=== PATIENT | female | born 1950 | race Caucasian/White ===

== ENCOUNTER 2019-02-14 09:48 | Inpatient (IN) ==
[2019-02-14] MEDS ORDERED: ONDANSETRON 4 MG/2 ML VIAL IV STA (10:11)
[2019-02-14 10:48] LABS: Basophils % 0.5 % (0.0-0.8); Eosinophils % 0.3 % (0.00-10.9); Hematocrit 46.3 VOL% (35.7-47.0); Hemoglobin 14.8 GM/DL (12.0-16.0); Immature Granulocytes % 0.5 %; Immature Granulocytes Absolute 0.04 #; Lymphocytes # 1.1 10*3/uL (1.4-4.0); Lymphocytes % 14.5 % (21.3-54.2); Mean Corpuscular Hemoglobin 31 PG (27-34); Mean Corpuscular Volume 95.5 FL (87-102); Mean Platelet Volume 8.7 FL (9.6-12.0); Monocytes # 0.4 10*3/uL (0.11-0.8); Monocytes % 5.4 % (1.7-12.7); Neutrophils # 6.2 10*3/uL (1.4-7.4); Neutrophils % 78.8 % (38.7-73.9); Platelet Count 294 T/CUMM (130-400); Red Blood Count 4.85 MC/CUMM (3.8-5.5); Red Cell Distribution Width 13.1 % (9.3-17.3); White Blood Count 7.8 T/CUMM (4-12)
[2019-02-14 10:55] LABS: Amorphous Crystals,Urine Occasional /HPF (Few); Apearance,Urine Slightly Hazy (Clear); Bacteria,Urine Occasional /HPF (Few); Bilirubin,Urine Negative (Negative); Blood, Urine Small mg/dL (Negative); Glucose,Urine (UA) 50 mg/dL (Negative); Hyaline Casts,Urine 45 /LPF (0-3); Ketones,Urine 5 mg/dL (Negative); Mucus,Urine Many /LPF (Occasional); Nitrite,Urine Negative (Negative); Protein,Urine 30 MG/DL; RBC,Urine 1 /HPF (0-4); Squamous Epithelial Cell,Urine Occasional /HPF (0-10); Urine Color Amber (Yellow); WBC,Urine 14 /HPF (0-6)
[2019-02-14 11:09] LABS: Alanine Aminotransferase 14 U/L (13-56); Alkaline Phosphatase 85 U/L (45-117); Aspartate Amino Transferase 12 U/L (0-37); Blood Urea Nitrogen 6 MG/DL (7-18); Calcium 8.6 MG/DL (8.5-10.1); Glucose 239 MG/DL (74-106); Osmolality,Calculated 271.4 MOS/KG (273-304); Sodium 133 MMOL/L (136-145); Total Protein 6.9 G/DL (6.4-8.3)
[2019-02-14 11:16] LABS: Potassium 1.8 MMOL/L (3.5-5.1)
[2019-02-14] MEDS ORDERED: POTASSIUM CHLORIDE 20 MEQ TABLET PO STA (11:23)
[2019-02-14] MEDS ORDERED: SODIUM CHLOR 0.9% KCL 40 MEQ 40 MEQ/1,000 ML BAG IV SCH ×2 (11:30→13:30)
[2019-02-14] MEDS ORDERED: POTASSIUM CHLORIDE 20 MEQ TABLET PO ONE (12:36)
[2019-02-14] MEDS ORDERED: ACETAMINOPHEN 325 MG TABLET PO PRN (13:12)
[2019-02-14] MEDS ORDERED: ONDANSETRON 4 MG/2 ML VIAL IV PRN (13:12)
[2019-02-14] MEDS ORDERED: DOCUSATE SODIUM 100 MG CAPSULE PO PRN (13:12)
[2019-02-14] MEDS ORDERED: NICOTINE 21 MG/24 HR PATCH TRANSDERM PRN (13:12)
[2019-02-14] MEDS ORDERED: LACTULOSE 20 GM/30 ML UDCUP PO PRN (13:12)
[2019-02-14] MEDS: ENOXAPARIN 40 MG/0.4 ML SYRINGE SUBCUT SCH (13:56)
[2019-02-14] MEDS: POTASSIUM CHLORIDE 20 MEQ TABLET PO SCH ×2 (14:02→20:33)
[2019-02-14 14:28] LABS: Risk Ratio 2.35; Thyroid Stimulating Hormone 0.838 uIU/ml (0.358-3.74); VLDL CHOLESTEROL 19.4 MG/DL
[2019-02-14] MEDS ORDERED: DIPHENOXYLATE/ATROPINE 2.5-0.025 MG TABLET PO ONE (16:02)
[2019-02-14] MEDS: DEXT 5% NACL 0.45% KCL 20 MEQ 20 MEQ/1,000 ML BAG IV SCH (18:35)
[2019-02-14] MEDS: PIPERACILLIN/TAZOBACTAM 3,375 MG in SODIUM CHLORIDE 0.9% 100 ML IV SCH (18:43)
[2019-02-14] MEDS: CHOLESTYRAMINE 4 GM PACK PO SCH (20:33)
[2019-02-15] MEDS: PIPERACILLIN/TAZOBACTAM 3,375 MG in SODIUM CHLORIDE 0.9% 100 ML IV SCH ×3 (01:49→18:54)
[2019-02-15 05:26] LABS: Calcium 7.7 MG/DL (8.5-10.1); Osmolality,Calculated 281.3 MOS/KG (273-304); Potassium 2.9 MMOL/L (3.5-5.1)
[2019-02-15 05:38] LABS: Basophils % 0.3 % (0.0-0.8); Eosinophils # 0.1 10*3/uL (0.0-0.87); Eosinophils % 1.6 % (0.00-10.9); Hematocrit 38.3 VOL% (35.7-47.0); Hemoglobin 12.1 GM/DL (12.0-16.0); Immature Granulocytes % 0.4 %; Immature Granulocytes Absolute 0.03 #; Lymphocytes # 1.3 10*3/uL (1.4-4.0); Lymphocytes % 17.8 % (21.3-54.2); Mean Corpuscular HGB Conc 31.6 GM/DL (32-36); Mean Corpuscular Hemoglobin 31 PG (27-34); Mean Corpuscular Volume 96.5 FL (87-102); Mean Platelet Volume 9.1 FL (9.6-12.0); Monocytes # 0.5 10*3/uL (0.11-0.8); Monocytes % 6.9 % (1.7-12.7); Neutrophils # 5.2 10*3/uL (1.4-7.4); Platelet Count 249 T/CUMM (130-400); Red Blood Count 3.97 MC/CUMM (3.8-5.5); Red Cell Distribution Width 13.3 % (9.3-17.3); White Blood Count 7.1 T/CUMM (4-12)
[2019-02-15] MEDS: DEXT 5% NACL 0.45% KCL 20 MEQ 20 MEQ/1,000 ML BAG IV SCH ×2 (06:37→18:56)
[2019-02-15] MEDS: CHOLESTYRAMINE 4 GM PACK PO SCH ×2 (10:11→21:51)
[2019-02-15] MEDS: ENOXAPARIN 40 MG/0.4 ML SYRINGE SUBCUT SCH ×2 (10:12→14:47)
[2019-02-15] MEDS: PANTOPRAZOLE 40 MG TABLET PO SCH (10:12)
[2019-02-15] MEDS: POTASSIUM CHLORIDE 20 MEQ TABLET PO SCH ×3 (10:12→21:51)
[2019-02-15] MEDS: NICOTINE 21 MG/24 HR PATCH TRANSDERM SCH (10:22)
[2019-02-15] MEDS: DESITIN 4OZ/NYSTATIN 15 GRAM MIXTURE PASTE TOP SCH ×2 (18:55→21:55)
[2019-02-16] MEDS: PIPERACILLIN/TAZOBACTAM 3,375 MG in SODIUM CHLORIDE 0.9% 100 ML IV SCH ×2 (02:06→09:12)
[2019-02-16 05:26] LABS: Basophils % 0.3 % (0.0-0.8); Eosinophils # 0.1 10*3/uL (0.0-0.87); Eosinophils % 2.2 % (0.00-10.9); Hematocrit 39.9 VOL% (35.7-47.0); Hemoglobin 12.4 GM/DL (12.0-16.0); Immature Granulocytes % 0.3 %; Immature Granulocytes Absolute 0.02 #; Lymphocytes # 0.9 10*3/uL (1.4-4.0); Lymphocytes % 14.6 % (21.3-54.2); Mean Corpuscular HGB Conc 31.1 GM/DL (32-36); Mean Corpuscular Hemoglobin 30 PG (27-34); Mean Corpuscular Volume 97.6 FL (87-102); Mean Platelet Volume 8.9 FL (9.6-12.0); Monocytes # 0.4 10*3/uL (0.11-0.8); Monocytes % 6.7 % (1.7-12.7); Neutrophils # 4.5 10*3/uL (1.4-7.4); Neutrophils % 75.9 % (38.7-73.9); Platelet Count 231 T/CUMM (130-400); Red Blood Count 4.09 MC/CUMM (3.8-5.5); Red Cell Distribution Width 13.2 % (9.3-17.3)
[2019-02-16 05:44] LABS: Calcium 7.7 MG/DL (8.5-10.1); Osmolality,Calculated 282.3 MOS/KG (273-304); Potassium 3.6 MMOL/L (3.5-5.1)
[2019-02-16] MEDS: CHOLESTYRAMINE 4 GM PACK PO SCH (09:11)
[2019-02-16] MEDS: NICOTINE 21 MG/24 HR PATCH TRANSDERM SCH (09:12)
[2019-02-16] MEDS: POTASSIUM CHLORIDE 20 MEQ TABLET PO SCH (09:12)
[2019-02-16] MEDS: PANTOPRAZOLE 40 MG TABLET PO SCH (09:13)
[2019-02-16] MEDS: DESITIN 4OZ/NYSTATIN 15 GRAM MIXTURE PASTE TOP SCH (09:19)
[2019-02-16] MEDS ORDERED: WITCH HAZEL PADS 100/JAR TOP PRN (10:10)
[2019-02-16 12:22] VITALS: BP 117/68
== END 2019-02-16 13:38 | disposition home or self-care (01) | DRG 244 ==
LOC: N.ED 09:48 → SUATTDRO 11:33 → INTOOBSV 11:33 → N.4E 12:30 → SUATTDRO 02-15 14:34
PROVIDERS: ADMIT Family Medicine; ATTEND Hospitalist

== ENCOUNTER 2022-12-21 09:03 | Inpatient (IN) ==
[2022-12-21 09:33] LABS: Arterial Base Excess iSTAT 5 MMOL/L (-2.5-2.5); Arterial Bicarbonate iSTAT 37.1 MMOL/L (20-26); Arterial O2 Saturation iSTAT 98 % (95-100); Arterial PCO2 iSTAT 96 MM HG (35-48); Arterial PO2 iSTAT 136 MM HG (80-95); Arterial Total CO2 iSTAT 40 MMO/L (23-27); Arterial pH iSTAT 7.195 (7.35-7.45)
[2022-12-21 09:42] LABS: Basophils % 0.1 % (0.0-0.8); Eosinophils % 0.3 % (0.00-10.9); Hematocrit 46.1 VOL% (35.7-47.0); Immature Granulocytes % 5.1 %; Immature Granulocytes Absolute 0.76 #; Lymphocytes # 1.9 10*3/uL (1.4-4.0); Lymphocytes % 13.1 % (21.3-54.2); Mean Corpuscular HGB Conc 30.4 GM/DL (32-36); Mean Corpuscular Volume 104.8 FL (87-102); Mean Platelet Volume 10.4 FL (9.6-12.0); Monocytes # 1.1 10*3/uL (0.11-0.8); Monocytes % 7.6 % (1.7-12.7); NRBC # 1.03 10*3/uL; Neutrophils % 73.8 % (38.7-73.9); Platelet Count 339 T/CUMM (130-400); Red Cell Distribution Width 13.6 % (9.3-17.3); White Blood Count 14.76 T/CUMM (4-12)
[2022-12-21 09:50] LABS: INR 1.7; PT Patient Result 17.6 SECS (10.1-12.1); Partial Thromboplastin Time 22.3 SECS (23.7-32.9)
[2022-12-21 10:05] LABS: Band Neutrophils 4 % (0-10); Lymphocytes 16 % (20-55); Nucleated Red Blood Cells 4 /100 WBC (0-5); Platelet Estimate Adequate; Total Cells Counted 100
[2022-12-21] MEDS ORDERED: ALBUTEROL 2.5 MG/3 ML NEB RESP TX STA (10:10)
[2022-12-21] MEDS ORDERED: SODIUM CHLORIDE 0.9% 1,000 ML IV STA (10:53)
[2022-12-21 10:59] LABS: Amorphous Crystals,Urine Few /HPF (Few); Bacteria,Urine Many /HPF (Few); Hyaline Casts,Urine 106 /LPF (0-3); Mucus,Urine Occasional /LPF (Occasional)
[2022-12-21 11:00] LABS: Bilirubin,Urine Small mg/dL (Negative); Blood, Urine Moderate mg/dL (Negative); Glucose,Urine (UA) Negative (Negative); Ketones,Urine Negative (Negative); Nitrite,Urine Negative (Negative); Protein,Urine 100 mg/dL (Negative); Urine Appearance Cloudy (Clear); Urine Color Yellow (Yellow); Urine Specific Gravity 1.025 (1.001-1.035); Urine pH 5.5 (4.5-8.0)
[2022-12-21 11:02] LABS: Alanine Aminotransferase 2561 U/L (13-56); Albumin 2.6 G/DL (3.4-5.0); Alkaline Phosphatase 125 U/L (45-117); Aspartate Amino Transferase 2775 U/L (0-37); Blood Urea Nitrogen 58 MG/DL (7-18); Calcium 8.7 MG/DL (8.5-10.1); Carbon Dioxide 34 MMOL/L (21-32); Chloride 89 MMOL/L (98-107); Glucose 205 MG/DL (74-106); Osmolality,Calculated 287.4 MOS/KG (273-304); Potassium 4.1 MMOL/L (3.5-5.1); Sodium 133 MMOL/L (136-145); Total Protein 6.6 G/DL (6.4-8.2)
[2022-12-21 11:09] LABS: Barbiturates Screen,Urine Negative (Negative); Benzodiazepines Screen,Urine Negative (Negative); Cannabinoid Screen,Urine Negative (Negative); Opiate Screen,Urine Negative (Negative); Phencyclidine Screen,Urine Negative (Negative)
[2022-12-21] MEDS ORDERED: ALBUTEROL 2.5 MG/3 ML NEB RESP TX PRN (11:09)
[2022-12-21] MEDS ORDERED: ONDANSETRON 4 MG/2 ML VIAL IV PRN (11:09)
[2022-12-21] MEDS ORDERED: SODIUM CHLORIDE 0.9% 1,000 ML IV ONE (13:00)
[2022-12-21] MEDS ORDERED: MIDAZOLAM 2 MG/2 ML VIAL IV ONE (13:01)
[2022-12-21] MEDS: ENOXAPARIN 40 MG/0.4 ML SYRINGE SUBCUT SCH (13:24)
[2022-12-21] MEDS: methylPREDNISolone SOD SUC 40 MG/1 ML VIAL IV SCH ×2 (13:30→19:33)
[2022-12-21] MEDS: PANTOPRAZOLE 40 MG VIAL IV SCH (13:30)
[2022-12-21] MEDS: ALBUTEROL/IPRATROPIUM 3 ML NEB RESP TX SCH ×2 (13:30→19:26)
[2022-12-21] MEDS: LEVOFLOXACIN INJ 750 MG/150 ML PREMIX IV SCH (13:53)
[2022-12-21 13:57] LABS: Arterial Base Excess iSTAT 11 MMOL/L (-2.5-2.5); Arterial Bicarbonate iSTAT 36.1 MMOL/L (20-26); Arterial O2 Saturation iSTAT 100 % (95-100); Arterial PCO2 iSTAT 48 MM HG (35-48); Arterial PO2 iSTAT 274 MM HG (80-95); Arterial Total CO2 iSTAT 38 MMO/L (23-27); Arterial pH iSTAT 7.481 (7.35-7.45)
[2022-12-21 14:53] LABS: Hepatitis B Core IgM Quant 0.26 Index; Hepatitis B Surface Ag Quant < 0.10 Index; Hepatitis B Surface Ag Result Non-Reactive (NonReactive); Hepatitis C Virus Ab Quant < 0.02 Index; Hepatitis C Virus Ab Result Non-Reactive (NonReactive)
[2022-12-21] MEDS: INSULIN LISPRO 100 UNIT/ML SUBCUT SCH ×2 (17:29→23:27)
[2022-12-21] MEDS ORDERED: ETOMIDATE 20 MG/10 ML VIAL IV ONE (18:30)
[2022-12-21] MEDS ORDERED: ROCURONIUM 100 MG/10 ML VIAL IV ONE (18:30)
[2022-12-22] MEDS: ALBUTEROL/IPRATROPIUM 3 ML NEB RESP TX SCH ×4 (00:39→18:50)
[2022-12-22 03:20] LABS: Eosinophils % 0.1 % (0.00-10.9); Hematocrit 41.1 VOL% (35.7-47.0); Hemoglobin 13.4 GM/DL (12.0-16.0); Immature Granulocytes % 3.6 %; Immature Granulocytes Absolute 0.39 #; Lymphocytes # 0.7 10*3/uL (1.4-4.0); Lymphocytes % 6.7 % (21.3-54.2); Mean Corpuscular HGB Conc 32.6 GM/DL (32-36); Mean Corpuscular Volume 98.3 FL (87-102); Mean Platelet Volume 9.3 FL (9.6-12.0); Monocytes # 0.4 10*3/uL (0.11-0.8); Monocytes % 3.8 % (1.7-12.7); NRBC # 0.48 10*3/uL; Neutrophils % 85.8 % (38.7-73.9); Platelet Count 246 T/CUMM (130-400); Red Blood Count 4.18 MC/CUMM (3.8-5.5); Red Cell Distribution Width 13.7 % (9.3-17.3); White Blood Count 10.82 T/CUMM (4-12)
[2022-12-22 03:31] LABS: INR 1.6; PT Patient Result 17.3 SECS (10.1-12.1)
[2022-12-22 03:42] LABS: Lymphocytes 6 % (20-55); Nucleated Red Blood Cells 8 /100 WBC (0-5); Platelet Estimate Normal; Total Cells Counted 100
[2022-12-22] MEDS: methylPREDNISolone SOD SUC 40 MG/1 ML VIAL IV SCH ×3 (03:45→20:10)
[2022-12-22 03:53] LABS: Albumin 2.2 G/DL (3.4-5.0); Bilirubin,Total 0.9 MG/DL (0.20-1.00); Calcium 8.5 MG/DL (8.5-10.1); Osmolality,Calculated 303.1 MOS/KG (273-304); Potassium 3.1 MMOL/L (3.5-5.1); Risk Ratio 6.8; Thyroid Stimulating Hormone 0.532 uIU/ml (0.358-3.74); Total Protein 6.2 G/DL (6.4-8.2); VLDL Cholesterol 56.8 MG/DL
[2022-12-22] MEDS ORDERED: POTASSIUM CHLORIDE RIDER 10 MEQ/100 ML PREMIX IV PRN (04:48)
[2022-12-22 04:49] LABS: Arterial Base Excess iSTAT 10 MMOL/L (-2.5-2.5); Arterial Bicarbonate iSTAT 33.4 MMOL/L (20-26); Arterial O2 Saturation iSTAT 89 % (95-100); Arterial PCO2 iSTAT 41 MM HG (35-48); Arterial PO2 iSTAT 51 MM HG (80-95); Arterial Total CO2 iSTAT 35 MMO/L (23-27); Arterial pH iSTAT 7.517 (7.35-7.45)
[2022-12-22] MEDS: POTASSIUM CHLORIDE RIDER 20 MEQ/100 ML PREMIX IV PRN ×3 (05:27→09:52)
[2022-12-22] MEDS: INSULIN LISPRO 100 UNIT/ML SUBCUT SCH ×4 (05:44→23:41)
[2022-12-22] MEDS: ENOXAPARIN 40 MG/0.4 ML SYRINGE SUBCUT SCH (11:21)
[2022-12-22] MEDS: PANTOPRAZOLE 40 MG VIAL IV SCH (11:21)
[2022-12-22] MEDS: ZINC OXIDE 16% PASTE 57 GM TUBE TOP SCH (20:11)
[2022-12-22] MEDS: DESITIN 4OZ/NYSTATIN 15 GRAM MIXTURE PASTE TOP SCH (20:11)
[2022-12-22] MEDS: MEPERIDINE 50 MG/1 ML VIAL IV PRN (20:11)
[2022-12-23] MEDS: ALBUTEROL/IPRATROPIUM 3 ML NEB RESP TX SCH ×4 (00:50→20:07)
[2022-12-23 03:38] LABS: Immature Granulocytes % 6.7 %; Immature Granulocytes Absolute 1.09 #; Lymphocytes # 0.9 10*3/uL (1.4-4.0); Lymphocytes % 5.5 % (21.3-54.2); Mean Corpuscular HGB Conc 31.7 GM/DL (32-36); Mean Corpuscular Volume 102.5 FL (87-102); Mean Platelet Volume 9.6 FL (9.6-12.0); Monocytes # 0.8 10*3/uL (0.11-0.8); Monocytes % 4.9 % (1.7-12.7); NRBC # 0.42 10*3/uL; Neutrophils % 82.9 % (38.7-73.9); Platelet Count 242 T/CUMM (130-400); Red Cell Distribution Width 14.1 % (9.3-17.3); White Blood Count 16.28 T/CUMM (4-12)
[2022-12-23] MEDS: methylPREDNISolone SOD SUC 40 MG/1 ML VIAL IV SCH ×3 (03:38→19:44)
[2022-12-23 03:58] LABS: Band Neutrophils 3 % (0-10); Lymphocytes 5 % (20-55); Macrocytosis Slight; Nucleated Red Blood Cells 6 /100 WBC (0-5); Platelet Estimate Adequate; Polychromasia Slight; Total Cells Counted 100
[2022-12-23 04:11] LABS: Albumin 2.2 G/DL (3.4-5.0); Bilirubin,Total 0.5 MG/DL (0.20-1.00); Calcium 8.6 MG/DL (8.5-10.1); Osmolality,Calculated 312.8 MOS/KG (273-304); Potassium 3.6 MMOL/L (3.5-5.1); Total Protein 5.9 G/DL (6.4-8.2)
[2022-12-23 04:21] LABS: Arterial Base Excess iSTAT 8 MMOL/L (-2.5-2.5); Arterial Bicarbonate iSTAT 33.9 MMOL/L (20-26); Arterial O2 Saturation iSTAT 97 % (95-100); Arterial PCO2 iSTAT 49 MM HG (35-48); Arterial PO2 iSTAT 91 MM HG (80-95); Arterial Total CO2 iSTAT 35 MMO/L (23-27); Arterial pH iSTAT 7.446 (7.35-7.45)
[2022-12-23] MEDS: INSULIN LISPRO 100 UNIT/ML SUBCUT SCH ×4 (05:25→23:36)
[2022-12-23] MEDS: ZINC OXIDE 16% PASTE 57 GM TUBE TOP SCH ×2 (09:25→20:53)
[2022-12-23] MEDS: DESITIN 4OZ/NYSTATIN 15 GRAM MIXTURE PASTE TOP SCH ×2 (09:25→20:53)
[2022-12-23] MEDS: PANTOPRAZOLE 40 MG VIAL IV SCH (11:15)
[2022-12-23] MEDS: LEVOFLOXACIN INJ 750 MG/150 ML PREMIX IV SCH (11:15)
[2022-12-23] MEDS: ENOXAPARIN 40 MG/0.4 ML SYRINGE SUBCUT SCH (11:20)
[2022-12-23] MEDS: CEFEPIME 1,000 MG in SODIUM CHLORIDE 0.9% 100 ML IV SCH ×2 (11:40→19:46)
[2022-12-23] MEDS ORDERED: LACTATED RINGERS 500 ML IV ONE (12:56)
[2022-12-23] MEDS: MEPERIDINE 50 MG/1 ML VIAL IV PRN (14:20)
[2022-12-23] MEDS ORDERED: PHENYLEPHRINE DRIP 40 MG/250 ML PREMIX IV PRN (17:42)
[2022-12-24] MEDS: ALBUTEROL/IPRATROPIUM 3 ML NEB RESP TX SCH ×4 (01:26→19:33)
[2022-12-24 03:47] LABS: Arterial Base Excess iSTAT 10 MMOL/L (-2.5-2.5); Arterial Bicarbonate iSTAT 35.7 MMOL/L (20-26); Arterial O2 Saturation iSTAT 98 % (95-100); Arterial PCO2 iSTAT 51 MM HG (35-48); Arterial PO2 iSTAT 97 MM HG (80-95); Arterial Total CO2 iSTAT 37 MMO/L (23-27); Arterial pH iSTAT 7.454 (7.35-7.45)
[2022-12-24] MEDS: methylPREDNISolone SOD SUC 40 MG/1 ML VIAL IV SCH ×3 (04:00→20:20)
[2022-12-24 04:07] LABS: Albumin 2.2 G/DL (3.4-5.0); Bilirubin,Total 0.5 MG/DL (0.20-1.00); Calcium 8.5 MG/DL (8.5-10.1); Osmolality,Calculated 314.4 MOS/KG (273-304); Potassium 3.9 MMOL/L (3.5-5.1); Total Protein 5.6 G/DL (6.4-8.2)
[2022-12-24 04:10] LABS: Hematocrit 41.3 VOL% (35.7-47.0); Hemoglobin 13.3 GM/DL (12.0-16.0); Immature Granulocytes % 8.3 %; Immature Granulocytes Absolute 1.72 #; Lymphocytes # 1.2 10*3/uL (1.4-4.0); Lymphocytes % 5.9 % (21.3-54.2); Mean Corpuscular HGB Conc 32.2 GM/DL (32-36); Mean Corpuscular Volume 102.5 FL (87-102); Mean Platelet Volume 9.6 FL (9.6-12.0); Monocytes # 1.1 10*3/uL (0.11-0.8); Monocytes % 5.5 % (1.7-12.7); NRBC # 0.26 10*3/uL; Neutrophils % 80.3 % (38.7-73.9); Platelet Count 247 T/CUMM (130-400); Red Blood Count 4.03 MC/CUMM (3.8-5.5); Red Cell Distribution Width 14.6 % (9.3-17.3); White Blood Count 20.72 T/CUMM (4-12)
[2022-12-24] MEDS: CEFEPIME 1,000 MG in SODIUM CHLORIDE 0.9% 100 ML IV SCH ×3 (04:18→20:20)
[2022-12-24 04:35] LABS: Band Neutrophils 2 % (0-10); Lymphocytes 6 % (20-55); Total Cells Counted 100
[2022-12-24 04:36] LABS: Macrocytosis Slight; Platelet Estimate Normal; Polychromasia Slight
[2022-12-24] MEDS: INSULIN LISPRO 100 UNIT/ML SUBCUT SCH ×4 (05:20→20:21)
[2022-12-24] MEDS ORDERED: POTASSIUM PHOSPHATE 30 MMOL in SODIUM CHLORIDE 0.9% 250 ML IV ONE (07:30)
[2022-12-24] MEDS: INSULIN GLARGINE 100 UNIT/ML SUBCUT SCH (08:45)
[2022-12-24] MEDS: PANTOPRAZOLE 40 MG VIAL IV SCH (11:10)
[2022-12-24] MEDS: MEPERIDINE 50 MG/1 ML VIAL IV PRN (11:15)
[2022-12-24] MEDS: ZINC OXIDE 16% PASTE 57 GM TUBE TOP SCH ×2 (11:30→20:21)
[2022-12-24] MEDS: DESITIN 4OZ/NYSTATIN 15 GRAM MIXTURE PASTE TOP SCH ×2 (11:30→20:21)
[2022-12-24] MEDS: ENOXAPARIN 40 MG/0.4 ML SYRINGE SUBCUT SCH (12:00)
[2022-12-24] MEDS ORDERED: DEXTROSE 50% 25 GM/50 ML SYRINGE IV PRN (19:06)
[2022-12-25] MEDS: ALBUTEROL/IPRATROPIUM 3 ML NEB RESP TX SCH ×4 (00:07→19:36)
[2022-12-25 03:45] LABS: Hematocrit 42.1 VOL% (35.7-47.0); Hemoglobin 13.2 GM/DL (12.0-16.0); Immature Granulocytes % 7.1 %; Immature Granulocytes Absolute 1.03 #; Lymphocytes # 0.7 10*3/uL (1.4-4.0); Lymphocytes % 4.7 % (21.3-54.2); Mean Corpuscular HGB Conc 31.4 GM/DL (32-36); Mean Corpuscular Volume 102.9 FL (87-102); Mean Platelet Volume 9.3 FL (9.6-12.0); Monocytes # 0.6 10*3/uL (0.11-0.8); Monocytes % 4.3 % (1.7-12.7); NRBC # 0.07 10*3/uL; Neutrophils % 83.9 % (38.7-73.9); Platelet Count 193 T/CUMM (130-400); Red Blood Count 4.09 MC/CUMM (3.8-5.5); Red Cell Distribution Width 15.1 % (9.3-17.3); White Blood Count 14.54 T/CUMM (4-12)
[2022-12-25 03:55] LABS: Albumin 2.3 G/DL (3.4-5.0); Bilirubin,Total 0.6 MG/DL (0.20-1.00); Osmolality,Calculated 303.4 MOS/KG (273-304); Potassium 4.4 MMOL/L (3.5-5.1); Total Protein 5.7 G/DL (6.4-8.2)
[2022-12-25 04:10] LABS: Band Neutrophils 2 % (0-10); Eosinophils 1 % (0-10); Lymphocytes 6 % (20-55); Nucleated Red Blood Cells 1 /100 WBC (0-5); Total Cells Counted 100
[2022-12-25 04:11] LABS: Macrocytosis Slight; Polychromasia Slight
[2022-12-25] MEDS: methylPREDNISolone SOD SUC 40 MG/1 ML VIAL IV SCH ×3 (04:25→19:55)
[2022-12-25] MEDS: CEFEPIME 1,000 MG in SODIUM CHLORIDE 0.9% 100 ML IV SCH ×3 (04:27→17:32)
[2022-12-25 04:38] LABS: ABG Base Excess 9.8 MMOL/L (-2.5-2.5); ABG HCO3 33.5 MMOL/L (20-26); ABG Oxygen Saturation 93.2 % (95-100); ABG PCO2 55.3 MM HG (35-48); ABG PH 7.428 (7.35-7.45); ABG PO2 66.4 MM HG (80-95); ABG TCO2 31.6 MMOL/L (23-27)
[2022-12-25] MEDS: DESITIN 4OZ/NYSTATIN 15 GRAM MIXTURE PASTE TOP SCH ×2 (08:05→20:46)
[2022-12-25] MEDS: ZINC OXIDE 16% PASTE 57 GM TUBE TOP SCH ×2 (08:05→20:45)
[2022-12-25] MEDS: INSULIN GLARGINE 100 UNIT/ML SUBCUT SCH (08:05)
[2022-12-25] MEDS: INSULIN LISPRO 100 UNIT/ML SUBCUT SCH ×4 (08:05→20:46)
[2022-12-25] MEDS: LEVOFLOXACIN INJ 750 MG/150 ML PREMIX IV SCH (11:03)
[2022-12-25] MEDS: ENOXAPARIN 40 MG/0.4 ML SYRINGE SUBCUT SCH (12:38)
[2022-12-25] MEDS: PANTOPRAZOLE 40 MG VIAL IV SCH (12:38)
[2022-12-26] MEDS: CEFEPIME 1,000 MG in SODIUM CHLORIDE 0.9% 100 ML IV SCH ×5 (00:39→23:52)
[2022-12-26] MEDS: ALBUTEROL/IPRATROPIUM 3 ML NEB RESP TX SCH ×4 (01:54→19:28)
[2022-12-26 04:06] LABS: Arterial Base Excess iSTAT 11 MMOL/L (-2.5-2.5); Arterial Bicarbonate iSTAT 37.7 MMOL/L (20-26); Arterial O2 Saturation iSTAT 94 % (95-100); Arterial PCO2 iSTAT 55 MM HG (35-48); Arterial PO2 iSTAT 72 MM HG (80-95); Arterial Total CO2 iSTAT 39 MMO/L (23-27); Arterial pH iSTAT 7.444 (7.35-7.45)
[2022-12-26] MEDS ORDERED: methylPREDNISolone SOD SUC 40 MG/1 ML VIAL ONE (04:30)
[2022-12-26] MEDS: methylPREDNISolone SOD SUC 40 MG/1 ML VIAL IV SCH ×2 (04:36→21:51)
[2022-12-26 06:18] LABS: Basophils % 0.1 % (0.0-0.8); Hematocrit 45.1 VOL% (35.7-47.0); Hemoglobin 13.7 GM/DL (12.0-16.0); Immature Granulocytes % 5.6 %; Immature Granulocytes Absolute 0.84 #; Lymphocytes # 0.8 10*3/uL (1.4-4.0); Lymphocytes % 5.2 % (21.3-54.2); Mean Corpuscular HGB Conc 30.4 GM/DL (32-36); Mean Corpuscular Volume 105.9 FL (87-102); Mean Platelet Volume 9.1 FL (9.6-12.0); Monocytes # 0.6 10*3/uL (0.11-0.8); Monocytes % 3.7 % (1.7-12.7); NRBC # 0.03 10*3/uL; Neutrophils % 85.4 % (38.7-73.9); Platelet Count 183 T/CUMM (130-400); Red Blood Count 4.26 MC/CUMM (3.8-5.5); Red Cell Distribution Width 15.2 % (9.3-17.3); White Blood Count 15.06 T/CUMM (4-12)
[2022-12-26 06:36] LABS: Albumin 2.2 G/DL (3.4-5.0); Bilirubin,Total 0.5 MG/DL (0.20-1.00); Calcium 8.4 MG/DL (8.5-10.1); Potassium 4.7 MMOL/L (3.5-5.1); Total Protein 5.8 G/DL (6.4-8.2)
[2022-12-26 06:41] LABS: Lymphocytes 3 % (20-55); Phosphorous 4.2 MG/DL (2.5-4.9); Platelet Estimate Adequate; Total Cells Counted 100
[2022-12-26] MEDS ORDERED: FUROSEMIDE 40 MG/4 ML VIAL IV ONE (08:04)
[2022-12-26] MEDS: ZINC OXIDE 16% PASTE 57 GM TUBE TOP SCH ×2 (08:23→21:54)
[2022-12-26] MEDS: INSULIN LISPRO 100 UNIT/ML SUBCUT SCH ×4 (08:25→21:54)
[2022-12-26] MEDS: INSULIN GLARGINE 100 UNIT/ML SUBCUT SCH (08:25)
[2022-12-26] MEDS ORDERED: methylPREDNISolone SOD SUC 40 MG/1 ML VIAL IV SCH ×2 (08:30→21:00)
[2022-12-26] MEDS: LEVOFLOXACIN INJ 750 MG/150 ML PREMIX IV SCH (12:33)
[2022-12-26] MEDS: ENOXAPARIN 40 MG/0.4 ML SYRINGE SUBCUT SCH (12:34)
[2022-12-26] MEDS: PANTOPRAZOLE 40 MG VIAL IV SCH (12:34)
[2022-12-26] MEDS: ASPIRIN EC 81 MG TABLET PO SCH (16:27)
[2022-12-26] MEDS: DESITIN 4OZ/NYSTATIN 15 GRAM MIXTURE PASTE TOP SCH ×2 (16:27→21:51)
[2022-12-27] MEDS: ALBUTEROL/IPRATROPIUM 3 ML NEB RESP TX SCH ×5 (00:06→20:02)
[2022-12-27 03:57] LABS: Arterial Base Excess iSTAT 15 MMOL/L (-2.5-2.5); Arterial Bicarbonate iSTAT 43.7 MMOL/L (20-26); Arterial O2 Saturation iSTAT 95 % (95-100); Arterial PCO2 iSTAT 68 MM HG (35-48); Arterial PO2 iSTAT 79 MM HG (80-95); Arterial Total CO2 iSTAT 46 MMO/L (23-27); Arterial pH iSTAT 7.415 (7.35-7.45)
[2022-12-27] MEDS: CEFEPIME 1,000 MG in SODIUM CHLORIDE 0.9% 100 ML IV SCH (05:39)
[2022-12-27 06:11] LABS: Albumin 2.2 G/DL (3.4-5.0); Bilirubin,Total 0.5 MG/DL (0.20-1.00); Calcium 8.6 MG/DL (8.5-10.1); Osmolality,Calculated 286.4 MOS/KG (273-304); Potassium 4.7 MMOL/L (3.5-5.1); Total Protein 5.6 G/DL (6.4-8.2)
[2022-12-27 07:20] LABS: Basophils # 0.1 10*3/uL (0.0-0.2); Basophils % 0.8 % (0.0-0.8); Hematocrit 47.5 VOL% (35.7-47.0); Immature Granulocytes % 4.2 %; Immature Granulocytes Absolute 0.55 #; Lymphocytes # 0.8 10*3/uL (1.4-4.0); Mean Corpuscular HGB Conc 31.6 GM/DL (32-36); Mean Corpuscular Volume 104.2 FL (87-102); Mean Platelet Volume 9.1 FL (9.6-12.0); Monocytes # 0.5 10*3/uL (0.11-0.8); Monocytes % 3.7 % (1.7-12.7); Neutrophils % 85.3 % (38.7-73.9); Platelet Count 170 T/CUMM (130-400); Red Blood Count 4.56 MC/CUMM (3.8-5.5); Red Cell Distribution Width 15.2 % (9.3-17.3); White Blood Count 13.03 T/CUMM (4-12)
[2022-12-27 08:04] LABS: Lymphocytes 5 % (20-55); Platelet Estimate Adequate; Total Cells Counted 100
[2022-12-27] MEDS: INSULIN GLARGINE 100 UNIT/ML SUBCUT SCH (08:52)
[2022-12-27] MEDS: INSULIN LISPRO 100 UNIT/ML SUBCUT SCH ×4 (08:52→21:11)
[2022-12-27] MEDS: ASPIRIN EC 81 MG TABLET PO SCH (08:53)
[2022-12-27] MEDS: methylPREDNISolone SOD SUC 40 MG/1 ML VIAL IV SCH ×2 (08:53→21:11)
[2022-12-27] MEDS: DESITIN 4OZ/NYSTATIN 15 GRAM MIXTURE PASTE TOP SCH ×2 (08:58→21:11)
[2022-12-27] MEDS: ZINC OXIDE 16% PASTE 57 GM TUBE TOP SCH ×2 (08:58→21:11)
[2022-12-27] MEDS: ENOXAPARIN 40 MG/0.4 ML SYRINGE SUBCUT SCH (11:48)
[2022-12-27] MEDS: LEVOFLOXACIN INJ 750 MG/150 ML PREMIX IV SCH (11:48)
[2022-12-28] MEDS: ALBUTEROL/IPRATROPIUM 3 ML NEB RESP TX SCH ×2 (00:41→07:52)
[2022-12-28 04:09] LABS: Arterial Base Excess iSTAT 15 MMOL/L (-2.5-2.5); Arterial Bicarbonate iSTAT 43.4 MMOL/L (20-26); Arterial O2 Saturation iSTAT 95 % (95-100); Arterial PCO2 iSTAT 70 MM HG (35-48); Arterial PO2 iSTAT 80 MM HG (80-95); Arterial Total CO2 iSTAT 46 MMO/L (23-27)
[2022-12-28 06:02] LABS: Albumin 2.2 G/DL (3.4-5.0); Basophils % 0.3 % (0.0-0.8); Bilirubin,Total 0.5 MG/DL (0.20-1.00); Calcium 8.1 MG/DL (8.5-10.1); Hematocrit 44.7 VOL% (35.7-47.0); Hemoglobin 13.9 GM/DL (12.0-16.0); Immature Granulocytes % 2.1 %; Immature Granulocytes Absolute 0.22 #; Lymphocytes # 0.5 10*3/uL (1.4-4.0); Lymphocytes % 5.1 % (21.3-54.2); Mean Corpuscular HGB Conc 31.1 GM/DL (32-36); Mean Corpuscular Volume 105.2 FL (87-102); Mean Platelet Volume 9.2 FL (9.6-12.0); Monocytes # 0.3 10*3/uL (0.11-0.8); Neutrophils % 89.5 % (38.7-73.9); Platelet Count 142 T/CUMM (130-400); Potassium 4.3 MMOL/L (3.5-5.1); Red Blood Count 4.25 MC/CUMM (3.8-5.5); Red Cell Distribution Width 15.3 % (9.3-17.3); Total Protein 5.3 G/DL (6.4-8.2); White Blood Count 10.25 T/CUMM (4-12)
[2022-12-28] MEDS ORDERED: PANTOPRAZOLE 40 MG TABLET PO SCH (06:30)
[2022-12-28] MEDS: INSULIN LISPRO 100 UNIT/ML SUBCUT SCH (08:16)
[2022-12-28] MEDS: DESITIN 4OZ/NYSTATIN 15 GRAM MIXTURE PASTE TOP SCH (08:17)
[2022-12-28] MEDS: INSULIN GLARGINE 100 UNIT/ML SUBCUT SCH (08:17)
[2022-12-28] MEDS: ZINC OXIDE 16% PASTE 57 GM TUBE TOP SCH (08:17)
[2022-12-28] MEDS: methylPREDNISolone SOD SUC 40 MG/1 ML VIAL IV SCH (08:17)
[2022-12-28] MEDS: ASPIRIN EC 81 MG TABLET PO SCH (08:17)
[2022-12-28 08:33] VITALS: BP 118/56
[2022-12-28] MEDS ORDERED: acetaZOLAMIDE 250 MG TABLET PO SCH (11:00)
[2022-12-29] MEDS ORDERED: LEVOFLOXACIN 750 MG TABLET PO SCH (09:00)
[2022-12-29] MEDS ORDERED: predniSONE 20 MG TABLET PO SCH (09:00)
== END 2022-12-28 09:40 | DRG 871 ==
LOC: EDBD 09:03 → N.ED 09:03 → EDUNIT# 09:03 → SUATTDRO 11:18 → N.ICU 11:18 → N.2E 12-26 02:40
PROVIDERS: ADMIT Internal Medicine; ATTEND Internal Medicine